=== PATIENT | female | born 1995 | race Two or more races ===

== ENCOUNTER 2017-08-18 14:58 | Emergency (ER) | payer SELFPAY ==
[2017-08-18 15:07] VITALS: BP 138/84
--- NOTE | 2017-08-21 00:03 | ED ---
Jj Stone Gabriel, scribed for Joe Quiroz MD on 08/18/17 at 1503 . - HPI Summary HPI Summary: This patient is a 23 year old F presenting to [facility] with a chief complaint of ABD cramping and contractions that began on 08/16/17. The patient rates intermittent the pain 5/10 in severity and lasting minutes. Patient denies any vaginal bleeding or loss of fluid. Pt is 9 months by her dates and has not had any care as pt has recently arrived from [facility] 3 days ago. - History of Current Complaint Stated Complaint: LABOR Hx Obtained From: Patient Chief Complaint: Pain, Vaginal Bleeding Onset/Duration: Started Days Ago - 2, Still Present Timing: Intermittent, Lasting Days - 2 Severity: Moderate Current Severity: Moderate Pain Intensity: 5 Associated Signs and Symptoms: Positive: Vaginal Bleeding or Discharge - Allergies/Home Medications Allergies/Adverse Reactions: Allergies Allergy/AdvReac Type Severity Reaction Status Date / Time No Known Allergies Allergy Verified 08/18/17 16:09 PMH/Surg Hx/FS Hx/Imm Hx Respiratory History: Denies: Hx Chronic Obstructive Pulmonary Disease (COPD) History: Denies: Hx Acute Renal Failure, Hx Benign Prostatic Hyperplasia Neurological History: Denies: Hx CVA, Hx Dementia Infectious Disease History: Reports: Traveled Outside the [place] in Last 30 Days - Family History Known Family History: Negative: Renal Disease, Respiratory Disease, Seizure Disorder - Social History Alcohol Use: None Hx Substance Use: No Substance Use Type: Reports: None Hx Tobacco Use: No Smoking Status (MU): Never Smoked Tobacco Review of Systems Positive: Abdominal Pain Genitourinary: Other - vaginal bleeding All Other Systems Reviewed And Are Negative: Yes Physical Exam - Summary Physical Exam Summary: Appearance: Well-appearing, no distress, Well-nourished Skin: Warm, color reflects adequate perfusion Head: Normal Head/Face inspection Eyes: Conjunctiva clear ENT: Normal inspection Neck: Supple, no nodes, no JVD. Respiratory: Lungs clear, Normal breath sounds, no respiratory distress Cardio: RRR, No murmur, pulses normal, brisk capillary refill Abdomen: soft, nontender, no guarding, no rebound Bowel sounds: present Musculoskeletal: Strength Intact/ ROM intact. No calf tenderness. No edema. Neuro: Alert, muscle tone normal, facial symmetry, speech normal, sensory/motor intact Psychological: Normal : Gravid uterus, non tender; cervical exam: deferred - Physical Exam Triage Information Reviewed: Yes Vital Signs Reviewed: Yes Diagnostics - Vital Signs Vital Signs Temp Pulse Resp BP Pulse Ox 08/18/17 15:03 36.3 C 104 20 138/84 98 - Laboratory Lab Statement: Any lab studies that have been ordered have been reviewed, and results considered in the medical decision making process. Course/Dx - Course Course Of Treatment: Pt seen and examined by myself. OB staff at bedside. Spoke with [employer] C[employer] guard supervisor with plan for transport to L&D. - Diagnoses Provider Diagnoses: Active labor - Provider Notifications Discussed Care Of Patient With: AG[employer] OR DISABLED CARE WORKER - Transfer to L&D Discharge - Discharge Plan Condition: Stable Disposition: OTHER Discharge Disposition Comment[place] [facility] [place]: Early Labor Signs (ED) Referrals: No Primary Care Phys,NOPCP [Primary Care Provider] - Additional Instructions: Discharge to Labor and Delivery for further AGED OR DISABLED CARE WORKER care. The documentation as recorded by the Jj causey Gabriel accurately reflects the service I personally performed and the decisions made by me, Joe Quiroz MD.
== END 2017-08-18 15:10 ==
LOC: ED 14:58
DX: Z34.93 Encounter for supervision of normal pregnancy, unspecified, third trimester (principal); R10.9 Unspecified abdominal pain
CPT/HCPCS: 99282

== ENCOUNTER 2021-08-14 18:04 | Inpatient (IN) ==
[2021-08-14] MEDS ORDERED: Lactated Ringers 1000 ml BAG 1,000 ML IV ONE (18:18)
[2021-08-14] MEDS ORDERED: Buffered Lidocaine 1% SYRIN 1 ml INTRADERM ONE (18:18)
[2021-08-14] MEDS ORDERED: OBEPIDURAL 0 ML EPIDURAL ONE (18:35)
[2021-08-14] MEDS ORDERED: Lactated Ringers 1000 ml BAG 1,000 ML IV SCH (19:00)
[2021-08-14 19:35] LABS: ABS Lymphocytes 1.6 10^3/ul (1.0-4.8); ABS Monocytes 0.5 10^3/ul (0-0.8); ABS Neutrophils 7.4 10^3/ul (1.5-7.7); Eosinophil % 0.2 %; Hematocrit 36 % (35-47); Hemoglobin 12.4 g/dL (12.0-16.0); Lymphocyte % 16.6 %; Mean Corpuscular HGB Conc 35 g/dL (31-36); Mean Corpuscular Hemoglobin 30 pg (27-31); Mean Corpuscular Volume 86 fL (80-97); Mean Platelet Volume 8.2 fL (7.4-10.4); Platelet Count 249 10^3/uL (150-450); Red Blood Count 4.17 10^6 /uL (3.70-4.87); Red Cell Distribution Width 14 % (10-15); White Blood Count 9.5 10^3/uL (3.5-10.8)
[2021-08-14 19:36] LABS: Urine Benzodiazepine Screen None Detected (None Detect); Urine Cannabinoids Screen None Detected (None Detect); Urine Opiates Screen None Detected (None Detect)
[2021-08-14] MEDS ORDERED: Oxytocin in LR 0 UNITS/0 ML BAG IVPB ONE (19:46)
[2021-08-14] MEDS ORDERED: Glycerin ADULT 2.4 gm SUPP PR PRN (20:19)
[2021-08-14] MEDS: Dibucaine 1% OINT 28.35 GM TUBE PR PRN (20:38)
[2021-08-14] MEDS: Witch Hazel PAD JAR TOPICAL PRN (20:38)
[2021-08-15 01:11] LABS: HIV 4th Generation Nonreactive (Nonreactive)
[2021-08-15 06:54] LABS: ABS Lymphocytes 1.7 10^3/ul (1.0-4.8); ABS Monocytes 0.9 10^3/ul (0-0.8); ABS Neutrophils 8.9 10^3/ul (1.5-7.7); Eosinophil % 0.2 %; Hematocrit 33 % (35-47); Hemoglobin 11.4 g/dL (12.0-16.0); Lymphocyte % 14.9 %; Mean Corpuscular HGB Conc 35 g/dL (31-36); Mean Corpuscular Hemoglobin 30 pg (27-31); Mean Corpuscular Volume 87 fL (80-97); Mean Platelet Volume 7.9 fL (7.4-10.4); Platelet Count 245 10^3/uL (150-450); Red Blood Count 3.79 10^6 /uL (3.70-4.87); Red Cell Distribution Width 14 % (10-15); White Blood Count 11.6 10^3/uL (3.5-10.8)
[2021-08-16 09:10] VITALS: BP 127/76
[2021-08-16] MEDS: Witch Hazel PAD JAR TOPICAL PRN (13:50)
[2021-08-16] MEDS: Dibucaine 1% OINT 28.35 GM TUBE PR PRN (13:50)
== END 2021-08-16 16:10 | disposition home or self-care (01) | DRG 560 ==
LOC: MCHOBOUT 18:04 → MCHOB 18:23
PROVIDERS: ADMIT Midwife; ATTEND Midwife

== ENCOUNTER 2024-07-24 21:22 | Inpatient (IN) ==
[2024-07-24] MEDS ORDERED: Lidocaine 1% VIAL 10 MG/ML 30 ML VIAL INJ PRN (21:52)
[2024-07-24] MEDS ORDERED: Phenylephrine 40 mcg/mL 10mL (400mcg) SYRINGE IV PUSH PRN ×2 (22:17)
[2024-07-24] MEDS ORDERED: Sodium Citrate/Citric Acid LIQ 15 ML UDC PO PRN (22:17)
[2024-07-24 22:29] LABS: ABS Lymphocytes 1.5 10^3/uL (1.0-4.8); ABS Monocytes 0.5 10^3/uL (0.0-0.9); ABS Nucleated RBC 0.01 10^3/ul; Eosinophil % 0.3 %; Hematocrit 33.2 % (35-45); Hemoglobin 11.7 g/dL (11.5-14.3); Lymphocyte % 20.9 %; Mean Corpuscular Hemoglobin 31.3 pg (27-33); Mean Corpuscular Hgb Conc 35.4 g/dL (31-36); Mean Corpuscular Volume 88.5 fL (80-97); Mean Platelet Volume 8.2 fL (7.5-11.2); Nucleated Red Blood Cells % 0.1 %/100WBC (0.0-0.8); Platelet Count 218 10^3/uL (150-450); Red Blood Count 3.75 10^6/uL (3.63-4.92); Red Cell Distribution Width 13.9 % (12-17); White Blood Count 6.9 10^3/uL (3.8-11.8)
[2024-07-24 22:42] LABS: Urine Benzodiazepine Screen None Detected (None Detect); Urine Cannabinoids Screen None Detected (None Detect); Urine Opiates Screen None Detected (None Detect)
[2024-07-24] MEDS: Lactated Ringers 1000 ml BAG 1,000 ML IV SCH (22:45)
[2024-07-24] MEDS ORDERED: Glycerin ADULT 2.4 gm SUPP PR PRN (23:30)
[2024-07-25] MEDS: Witch Hazel PAD JAR TOPICAL PRN (01:25)
[2024-07-25] MEDS: Dibucaine 1% OINT 28.35 GM TUBE PR PRN (01:26)
[2024-07-25] MEDS: Buffered Lidocaine 1% SYRIN 1 ml INTRADERM ONE (04:24)
[2024-07-25] MEDS: Lactated Ringers 1000 ml BAG 1,000 ML IV ONE ×2 (04:26→04:27)
[2024-07-25] MEDS: fentaNYL 100 mcg/2 ml 50 MCG/ML VIAL ONE (04:27)
[2024-07-25] MEDS: Phenylephrine 40 mcg/mL 10mL (400mcg) SYRINGE ONE (04:28)
[2024-07-25] MEDS: OBEPIDURAL (200 ML) 200 ML EPIDURAL SCH (04:28)
[2024-07-25] MEDS: Lactated Ringers 1000 ml BAG 1,000 ML IV SCH (04:28)
[2024-07-26 16:57] LABS: ABS Eosinophils 0.1 10^3/uL (0.0-0.5); ABS Lymphocytes 1.7 10^3/uL (1.0-4.8); ABS Monocytes 0.6 10^3/uL (0.0-0.9); ABS Neutrophils 6.1 10^3/uL (1.5-7.6); ABS Nucleated RBC 0.01 10^3/ul; Eosinophil % 1.6 %; Lymphocyte % 19.5 %; Mean Corpuscular Hemoglobin 30.7 pg (27-33); Mean Corpuscular Hgb Conc 34.4 g/dL (31-36); Mean Corpuscular Volume 89.2 fL (80-97); Mean Platelet Volume 7.9 fL (7.5-11.2); Nucleated Red Blood Cells % 0.2 %/100WBC (0.0-0.8); Platelet Count 257 10^3/uL (150-450); Red Blood Count 3.92 10^6/uL (3.63-4.92); Red Cell Distribution Width 13.8 % (12-17); White Blood Count 8.6 10^3/uL (3.8-11.8)
[2024-07-26 20:02] VITALS: BP 120/63
== END 2024-07-26 22:06 | disposition home or self-care (01) | DRG 807 ==
LOC: MCHOBOUT 21:22 → MCHOB 21:56
PROVIDERS: ADMIT Midwife; ATTEND Midwife